=== PATIENT | female | born 1960 | race Hispanic/Latino ===

== ENCOUNTER → 2018-03-01 | Outpatient (CLI) | payer OTHER ==
[~2018-03-01] MED LIST: AMLODIPINE BESYL5 MG PO; ATORVASTATIN CA20 MG PO; ATORVASTATIN CA40 MG PO; BACLOFEN10 MG PO; BUSPIRONE HCL5 MG PO; FUROSEMIDE40 MG PO; GLIMEPIRIDE2 MG PO; HYDROCHLOROTHIA25 MG PO; LOSARTAN POTASS50 MG PO; LOSARTAN-HCTZ1 EACH; METFORMIN HCL1000 MG PO; METFORMIN HCL500 MG PO; NEXIUM40 MG PO; PENTASA500 MG PO; PIOGLITAZONE HC15 MG PO; TRAMADOL HCL100 MG; TRAZODONE HCL50 MG PO; VITAMIN D-32000 UNIT PO; VITAMIN E400 UNI1 PO
--- NOTE | 2018-03-01 10:48 | Diagnostic Imaging Report ---
PROCEDURE:ABDOMINAL ULTRASOUND COMPARISON:None. INDICATIONS:Not provided. TECHNIQUE: Saini-scale and color sonographic images were obtained of the abdomen in transverse and sagittal planes. FINDINGS: Liver: Enlarged measuring 19.7 in length in right midclavicular line. Increased echogenicity. No masses. Main portal vein: Enlarged measuring 1.5 cm with normal hepatopetal flow Gallbladder: No stones, sludge or wall thickening. Common Bile Duct: Normal measuring 0.4 cm Sonographic Castro's sign: Negative Right kidney: Measures 9.5 x 5.0 x 4.6 cm. Left kidney: Measures 11.3 x 5.7 x 5.2 cm. Echogenic stone in the mid aspect of the left kidney measures 10 mm. Spleen: Measures 10.3 x 4.5 x 5.3 cm. Pancreas: Limited visualization Inferior vena cava: Limited visualization Aorta: Limited visualization Ascites: None CONCLUSION: 1. Mildly enlarged liver with increased echogenicity. 2. No gallstones, sludge or wall thickening. 3. Left renal nonobstructing stone. Blade Ponce D.O. Dictated by: Blade Ponce D.O. on 03/01/2018 at 10:52 Electronically approved by: Blade Ponce D.O. on 03/01/2018 at 10:52
== END ==
LOC: US 08:57
PROVIDERS: ATTEND Internal Medicine Gastroenterology
DX: R10.9 Unspecified abdominal pain (principal)
CPT/HCPCS: 76700

== ENCOUNTER → 2019-03-21 | Outpatient (CLI) | payer MEDICARE, OTHER ==
[~2019-03-21] MED LIST changes: +CENTRUM PO; +CITRACAL PO; +ERGOCALCIFEROL1 GM PO; +HYDROXYCHLOROQ200 MG PO; +IRON PO; +TYLENOL PO; +VITAMIN B12 PO
--- NOTE | 2019-03-21 16:31 | Diagnostic Imaging Report ---
EXAM: Renal Ultrasound INDICATION: ^[id number] ^1209 ^URINARY TRACT INFECTION COMPARISON: None TECHNIQUE: Transverse and longitudinal images of the kidneys and bladder were obtained. FINDINGS: Right Kidney: Length: 10.4 cm Appearance: Normal echogenicity. Collecting system: No hydronephrosis Stones: None Cyst/Mass: None Left Kidney: Length: 9.9 cm Appearance: Normal echogenicity. Collecting system: No hydronephrosis Stones: 7 x 3 x 4 mm and 4 x 3 x 3 mm hyperechoic foci at the mid pole of the left kidney. Cyst/Mass: None Bladder: Normal IMPRESSION: Two hyperechoic foci at the mid pole of the left kidney, possibly representing nonobstructing renal calculi. No hydronephrosis. Signed by: Manju Botello MD on 03/21/2019 4:27 PM
== END ==
LOC: US 11:46
PROVIDERS: ATTEND Urology
DX: N39.0 Urinary tract infection, site not specified (principal)
CPT/HCPCS: 76770

== ENCOUNTER → 2019-04-01 | Day surgery (SDC) | payer MEDICARE, OTHER ==
--- NOTE | 2019-03-31 15:57 | Diagnostic Imaging Report ---
Abdomen, 1 view. History: Preop. Findings: Air is scattered throughout nondilated small and large bowel. Multiple surgical clips are present in the upper abdomen and right lower quadrant. There are no masses or abnormal calcifications. The osseous structures are intact. IMPRESSION: Non-specific bowel gas pattern. Signed by: Ja Becker on 03/31/2019 3:54 PM
[~2019-04-01] MED LIST changes: +CEFTRIAXONE SOD 1 GM/NS 50 ML 50 ML IV ONE; +DEXAMETHASONE SOD PHOS INJ 4 MG/ML VIAL ONE; +FENTANYL CITRATE/PF 100MCG/2 ML INJ ONE; +GLYCOPYRROLATE INJ 1MG/ 5 ML SYR ONE; +LIDOCAINE HCL 2% LOCAL INJ 5 ML SDV VIAL INJ ONE; +MIDAZOLAM HCL 2 MG/2 ML VIAL ONE; +ONDANSETRON HCL INJ 2MG/ML 2ML 2 MG/ML VIAL ONE; +PROPOFOL IV EMULSION 10 MG/ML 20 ML VIAL ONE; +SEVOFLURANE INHAL SOLN 250 ML PEN BTL ONE
--- OUTSIDE RECORDS SUMMARY | 2019-04-01 08:30 | XMS REPORT ---
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 Allergies, Adverse Reactions, Alerts This patient has no known allergies or adverse reactions. Medications This patient has no known medications. Results Test Description Test Time Test Comments Text Results Atomic Results Result Comments ABDOMEN-1VIEW (KUB) 2019-03-31 15:42:00 [place] [address] Patient Name: HE TOLEDO MR #: [id number] : 1960 Age/Sex: 58/F Req #: [id number] Adm Physician: Ordered by: MERCEDES HENDERSON MD Report #: [id number] Location: OR Room/Bed: Procedure: [id number] DX/ABDOMEN-1VIEW (KU) Exam Date: Exam Time: REPORT STATUS: Signed Abdomen, 1 view. History: Preop. Findings: Air is sc attered throughout nondilated small and large bowel. Multiple surgical clips are present in the upper abdomen and right lower quadrant. There are no masses or abnormal calcifications. The osseous structures are intact. IMPRESSION: Non-specific bowel gas pattern. Signed by: Gab Becker on 03/31/2019 3:54 PM Dictated By: GAB BECKER MD 1554 Transcribed By: MAHESH on 03/31/19 155 COPY TO: MERCEDES HENDERSON MD RENAL RETROPERITONEAL COMP 2019-03-21 16:26:00 [place] [address] Patient Name: HE TOLEDO MR #: [id number] : 1960 Age/Sex: 58/F Req #: [id number] Adm Physician: Ordered by: MERCEDES HENDERSON MD Report #: [id number] Location: Room/Bed: Procedure: [id number] US/US RENAL RETROPERITONEAL COMP Exam Date: 03/21/19 Exam Time: 1209 REPORT STATUS: Signed EXAM: Renal Ultrasound INDICATION: [id number] URINARY TRACT INFECTION COMPARISON: None TECHNIQUE: Transverse and longitudinal images of the kidneys and bladder were obtained. FINDINGS: Right Kidney: Length: 10.4 cm Appearance: Normal echogenicity. Collecting system: No hydronephrosis Stones: None Cyst/Mass: None Left Kidney: Length: 9.9 cm Appearance: Normal echogenicity. Collecting system: No hydronephrosis Stones: 7 x 3 x 4 mm and 4 x 3 x 3 mm hyperechoic foci at the mid pole of the left kidney. Cyst/Mass: None Bladder: Normal IMPRESSION: Two hyperechoic foci at the mid pole of the left kidney, possibly representing nonobstructing renal calculi. No hydronephrosis. Signed by: Medhat Davila MD on 03/21/2019 4:27 PM Dictated By: MEDHAT DAVILA MD 1627 Transcribed By: MAHESH on 03/21/19 1627 COPY TO: MERCEDES HENDERSON MD US ABDOMEN COMPLETE 2018-03-01 10:52:00 [place] [address] Patient Name: HE TOLEDO MR #: [id number] : 1960 Age/Sex: 57/F Req #: [id number] Adm Physician: Ordered by: CURT COFFEY MD Report #: [id number] Location: US Room/Bed: Procedure: [id number] US/US ABDOMEN COMPLETE Exam Date: Exam Time: REPORT STATUS: Signed PROCEDURE: ABDOMINAL ULTRASOUND COMPARISON: None. INDICATIONS: Not provided. TECHNIQUE: Saini-scale and color sonographic images were obtained of the abdomen in transverse and sagittal planes. FINDINGS: Liver: Enlarged measuring 19.7 in length in right midclavicular line. Increased echogenicity. No masses. Main portal vein: Enlarged measuring 1.5 cm with normal hepatopetal flow Gallbladder: No stones, sludge or wall thickening. Common Bile Duct: Normal measuring 0.4 cm Sonographic Castro's sign: Negative Right kidney: Measures 9.5 x 5.0 x 4.6 cm. Left kidney: Measures 11.3 x 5.7 x 5.2 cm. Echogenic stone in the mid aspect of the left kidney measures 10 mm. Spleen: Measures 10.3 x 4.5 x 5.3 cm. Pancreas: Limited visualization Inferior vena cava: Limited visualization Aorta: Limited visualization Ascites: None CONCLUSION: 1. Mildly enlarged liver with increased echogenicity. 2. No gallstones, sludge or wall thickening. 3. Left renal nonobstructing stone. Lee Ponce D.O. Dictated by: Lee Ponce D.O. on 03/01/2018 at 10:52 Electronically approved by: Lee Ponce D.O. on 03/01/2018 at 10:52 Dictated By: LEE PONCE DO 105 Transcribed By: GANESH on 03/01/181051 COPY TO: CURT COFFEY MD
[2019-04-01 10:35] VITALS: BP 123/50
--- NOTE | 2019-04-03 21:30 | Operative Report ---
DATE OF PROCEDURE: 04/01/2019 SURGEON: Javan Villalta MD PREOPERATIVE DIAGNOSES: 1. Multiple chronic urinary tract infections. 2. Microscopic hematuria. 3. Clinical signs and symptoms of interstitial cystitis. 4. Left renal calculus. POSTOPERATIVE DIAGNOSES: 1. Multiple chronic urinary tract infections. 2. Microscopic hematuria. 3. Clinical signs and symptoms of interstitial cystitis. 4. Left renal calculus. 5. Passed stone. PROCEDURES: 1. Cystourethroscopy with hydrodistention (entirely separate procedure for clinical signs and symptoms of interstitial cystitis). 2. Cystourethroscopy with left ureteral catheterization and left retrograde pyelogram (separate procedure for multiple chronic urinary tract infections). 3. Cystourethroscopy with right ureteral catheterization and right retrograde pyelogram (separate procedure for multiple chronic urinary tract infections). 4. Supervision of fluoroscopy. 5. Interpretation of retrograde pyelography. ANESTHESIA: General. ESTIMATED BLOOD LOSS: Minimal. COMPLICATIONS: None. INDICATIONS FOR PROCEDURE: Ms. Guevara is a 58-year-old female with history of multiple urinary tract infections and found to have a stone. She and I had a long discussion about alternatives, risks, and benefits of doing nothing, shock lithotripsy, cystoscopy, hydrodistention, retrograde pyelogram, and ultrasounds. She voiced understanding of the options, alternatives, risks, and benefits and elected to proceed. PROCEDURE IN DETAIL: After informed consent was obtained, the patient was taken to operative suite, placed supine on the operating table. She underwent general anesthesia by Anesthesia Service. She was placed in the dorsal lithotomy position, sterilely prepped and draped in standard fashion for cystoscopy. A 21-Italian cystoscope was inserted per urethra. Normal urethra was noted. Panendoscopy of the bladder revealed no tumors or stones. The hydrodistention was performed, revealed a capacity of 800 mL, no glomerulations, no Hunner's ulcer. Bilateral ureters were catheterized and a retrograde pyelogram was performed. There was no stone seen. The patient must have passed this stone. At this time with no stones, the lithotripsy portion of the procedure was terminated. The bladder was drained. The patient was awakened from anesthesia and transported to the recovery room in excellent condition. Supervision of fluoroscopy and interpretation of retrograde pyelography: I was present for the entire procedure and supervised the use of fluoroscopy. There was no radiologist present. Attention was turned to the left and right ureteral orifices, which were catheterized with an 8-Italian cone-tipped catheter. In retrograde fashion, contrast was injected revealing delicate ureters, delicate pelvocaliceal systems, no evidence of filling defects, no evidence of hydronephrosis. IMPRESSION: Normal retrograde pyelograms. Javan Villalta MD ES/MODL /[id number] cc: Marybeth Dhillon MD
== END | disposition home or self-care (01) ==
LOC: OR 08:26
PROVIDERS: ATTEND Urology
DX: N20.0 Calculus of kidney (principal); R31.29 Other microscopic hematuria; N30.10 Interstitial cystitis (chronic) without hematuria; Z88.0 Allergy status to penicillin; Z88.7 Allergy status to serum and vaccine; Z91.041 Radiographic dye allergy status; Z01.810 Encounter for preprocedural cardiovascular examination
CPT/HCPCS: 52260; 74018; 93005; C1758; J0696; J1100; J2001; J2250; J2405; J2704; J3010; J3490